=== PATIENT | female | born 1965 | race African-American/Black ===

== ENCOUNTER 2017-11-23 15:32 | Emergency (ER) | payer OTHER ==
[~2017-11-23] VITALS: Ht 165.1 cm; Wt 90.0 kg
[~2017-11-23 15:32] MED LIST: ASCOPOW PO; CALC-179 OR; FERR325T PO; LACTCAP7 PO; VITA8000 PO; [UNRECOGNIZED DRUG - OTHER] PO
[2017-11-23 15:34] VITALS: BP 145/100; PULSE 117; RESP 16; TEMP 99.8; O2SAT 96
[2017-11-23] MEDS ORDERED: IBUPROFEN 800 MG TAB PO ONE (16:15)
--- NOTE | 2017-11-23 16:16 | PD ---
HPI Chief Complaint: ENT Complaint Time Seen by Provider: 15:58 Travel History International Travel<30 days: No Contact w/Intl Traveler<30days: No Traveled to known affect area: No History of Present Illness HPI 52-year-old female presents to the emergency department with complaint of nasal congestion, throat pain, ear pain, body aches, subjective fever 3 days. Denies cough, chest tightness, shortness of breath, wheezing. Denies abdominal pain, fevers, headache. Denies lump in throat, difficulty swallowing, unusual drooling. Has been taking [place] for symptom management. Symptoms are mild in severity. No known aggravating or relieving factors. No one else with similar symptoms. Has primary care provider. Denies significant past medical history. Has no other medical complaints. No other modifying factors or associated signs and symptoms. PFSH Past Medical History Medical History: Denies Significant Hx Cancer: No Cardiovascular Problems: No Diabetes: No Diminished Hearing: No Endocrine: No Genitourinary: No Hepatitis: No Hiatal Hernia: No Immune Disorder: No Musculoskeletal: No Neurologic: No Psychiatric: No Respiratory: No Thyroid Disease: No ?: Not Past Surgical History Abdominal Surgery: No Cardiac Surgery: No Section: Yes (x3) Cholecystectomy: No Ear Surgery: No Endocrine Surgery: No Eye Surgery: No Genitourinary Surgery: No Gynecologic Surgery: Yes ( X 3) Hysterectomy: Yes (partial) Oral Surgery: No Thoracic Surgery: No Social History Alcohol Use: No Tobacco Use: No Substance Use: No Allergies-Medications (Allergen,Severity, Reaction): Coded Allergies: No Known Allergies (Verified Adverse Reaction, Unknown, 11/23/17) Reported Meds & Prescriptions Reported Meds & Active Scripts Active No Active Prescriptions or Reported Medications Review of Systems Except as stated in HPI: all other systems reviewed are Neg Physical Exam Narrative GENERAL: Well-nourished, well-developed black female patient, in no acute distress; low-grade fever 99.8, nontoxic-appearing SKIN: Warm and dry. No rash. HEAD: Atraumatic. Normocephalic. EYES: Pupils equal and round. No scleral icterus. No injection or drainage. ENT: Mucosa pink and moist. Oropharynx with erythema; without edema or exudates. No uvular edema. No uvular, palatal, or tonsillar deviation. Airway patent. EARS: Bilateral pinnae and external canals appear within normal limits. Bilateral tympanic membranes without erythema, dullness or perforation. NECK: Trachea midline. No lymphadenopathy. CARDIOVASCULAR: Regular rate and rhythm. No murmur appreciated. RESPIRATORY: No accessory muscle use. Clear to auscultation. Breath sounds equal bilaterally. No retractions or tachypnea. GASTROINTESTINAL: Abdomen soft, non-tender, nondistended. Hepatic and splenic margins not palpable. Bowel sounds are active 4 quadrants. MUSCULOSKELETAL: No obvious deformities. No clubbing. No cyanosis. No edema. NEUROLOGICAL: Awake and alert. Oriented 3. No obvious cranial nerve deficits. Motor grossly within normal limits. Normal speech. Moves all extremities. 5/5 strength to all extremities. PSYCHIATRIC: Appropriate mood and affect; insight and judgment normal. Data Data Last Documented VS Vital Signs Date Time Temp Pulse Resp B/P (MAP) Pulse Ox O2 Delivery O2 Flow Rate FiO2 11/23/17 15:34 99.8 117 16 145/100 (115) 96 Room Air Orders Orders Influenzae A/B Antigen (11/23/17 16:10) Ibuprofen (Motrin) (11/23/17 16:15) Group A Rapid Strep Screen (11/23/17 16:10) MDM Medical Decision Making Medical Screen Exam Complete: Yes Emergency Medical Condition: Yes Medical Record Reviewed: Yes Differential Diagnosis Influenza, strep pharyngitis, viral illness, URI Narrative Course 52-year-old female with cold/flu symptoms 3 days. Patient with low-grade fever of 99.8 in the ER. Nontoxic-appearing. Denies vomiting. Subjective fevers. Complaining of sore throat. Rapid strep, influenza ordered. 1714: Rapid strep positive. Influenza negative. Amoxicillin, Magic mouthwash prescribed for home. Instructed patient to follow up with primary care provider. Patient verbalizes understanding and agreement with treatment plan. Patient is medically cleared and stable for discharge. Discussed reasons to return to the emergency department. Patient agrees with treatment plan. The patients vital signs are stable and the patient is stable for outpatient follow- up and treatment. Patient discharged home, stable and in no acute distress. Diagnosis Primary Impression: Strep throat Referrals: [facility] Primary Care Physician Patient Instructions: General Instructions, Strep Throat (ED) Departure Forms: Tests/Procedures, Work Release Enter return to work date: Nov 25, 2017 Additional Instructions: Take Antibiotics as prescribed and complete full course of antibiotics Throw away and change your toothbrush 24 hours after starting antibiotics Get plenty of sleep/rest Rest your voice Drink plenty of fluids to prevent dehydration Use warm saltwater gargles to soothe throat pain Use an air humidifier/turn off ceiling fans Use throat lozenges as needed for sore throat Use ibuprofen or acetaminophen as needed to relieve pain and fever Follow-up with your primary care provider within 2-4 days Return immediately to the emergency department with worsening of symptoms Med/Other Pt SpecificInfo: Prescription(s) given Scripts Ibuprofen (Ibuprofen) 800 Mg Tab 800 MG PO Q6HR Y for PAIN, #30 TAB 0 Refills Prov: Franny Ritter 11/23/17 Zsoefraeknjxkho-[id number]-Alum-Simeth Liq (Magic Mouthwash Pediatric/Adult Liq) 60 Ml Susp 5 ML SWISH-SWAL ACHS Y for SORE THROAT, #60 ML 0 Refills Each 5mL contains: Diphenydramine 4.5mg, Viscous Lidocaine 2% 10mg, Maalox Advanced Regular Strength 2.7ml Prov: Franny Ritter 11/23/17 Amoxicillin (Amoxicillin) 500 Mg Cap 500 MG PO BID for Infection for 10 Days, #20 CAP 0 Refills Prov: Franny Ritter 11/23/17 Disposition: 01 DISCHARGE HOME Condition: Stable Franny Ritetr Nov 23, 2017 16:16
[2017-11-23] MEDS ORDERED: MAGICPED SWISH-SWAL (17:15)
[2017-11-23] MEDS ORDERED: IBUP1TAB7 PO (17:15)
[2017-11-23] MEDS ORDERED: AMOX500C PO (17:15)
[2017-11-23 17:22] VITALS: BP 147/91; PULSE 100; RESP 18; O2SAT 99
== END 2017-11-23 17:29 | disposition home or self-care (01) ==
LOC: NEPD 15:32
DX: J02.0 Streptococcal pharyngitis (principal)
CPT/HCPCS: 87804; 87880; 99284